=== PATIENT | female | born 1960 | race American Indian/Alaskan Native ===

== ENCOUNTER 2016-08-02 13:04 | Outpatient (CLI) | payer OTHER ==
--- NOTE | 2016-08-02 13:53 | Mammography Report ---
Screening mammogram: Routine views are obtained and compared to prior examinations dating back to 2011. In the right MLO view superiorly there is a small asymmetry is somewhat more prominent than seen on all of her prior exams. This is not identified in the CC projection. Slightly above and posterior to the right nipple is stellate deformity seen only in the MLO projection. This is slightly more prominent than seen on prior exams. The remainder of the breast pattern is heterogeneous and symmetrically distributed with no other focal findings. With the exception of the above-mentioned findings in the right breast the breast pattern bilaterally is unchanged from prior studies. CAD used. Impression: Right breast asymmetries. Recommendation: Additional compression imaging of the right breast and ultrasound as needed. BI-RADS CATEGORY: 0 = Needs additional imaging evaluation ACR BI-RADS MAMMOGRAPHIC CODES: 0 = Needs additional imaging evaluation; 1 = Negative; 2 = Benign; 3 = Probably benign; 4 = Suspicious; 5 = Malignant; 6 = Known biopsy-proven malignancy COMMENT: 1. Dense breast tissue, i.e., adenosis, fibrocystic changes, etc., may obscure an underlying neoplasm. 2. Approximately 10% of cancers are not detected with mammography. 3. A negative mammography report should not delay biopsy if a clinically suspicious mass is present.
== END 2016-08-02 13:05 | disposition home or self-care (01) ==
LOC: SPVWC 13:04
DX: Z12.31 Encounter for screening mammogram for malignant neoplasm of breast (principal)
CPT/HCPCS: 77067; G0202

== ENCOUNTER 2016-08-23 14:29 | Outpatient (CLI) | payer OTHER ==
--- NOTE | 2016-08-23 16:07 | Mammography Report ---
Right mammogram and right breast ultrasound: Additional compression imaging of the breasts confirms the presence of an area of mild asymmetry in the superior breast but is not visualized in the additional CC images. Review of prior studies demonstrates a slightly larger than seen in 2015. The margins are ill-defined. No calcifications and no architectural distortion noted. It measures approximately 9.2 mm. The area of concern in the retroareolar region shows no significant abnormality in the additional images. Ultrasound imaging in the tail of the breast shows no abnormality. There is a 13 mm benign appearing lymph node in the right axilla. In the 8:30 position approximately 5 cm from the nipple there is an elongated and well circumscribed and homogeneously hypoechoic nodule measuring 7.3 mm. No internal flow with color imaging. No mammographic correlation identified. Impressions: 1. The asymmetry in the superior breast is probably benign but has slightly enlarged in the past 2 years. No ultrasound correlation. 2. Indeterminate solid appearing nodule at 8:30. Recommendations: 1. Ultrasound guided biopsy of solid lesion. 2. Six-month mammogram followup of right upper breast asymmetry. The findings and recommendations have been discussed with the patient. She has been notified to call you for scheduling. BI-RADS CATEGORY: 4 = Suspicious ACR BI-RADS MAMMOGRAPHIC CODES: 0 = Needs additional imaging evaluation; 1 = Negative; 2 = Benign; 3 = Probably benign; 4 = Suspicious; 5 = Malignant; 6 = Known biopsy-proven malignancy COMMENT: 1. Dense breast tissue, i.e., adenosis, fibrocystic changes, etc., may obscure an underlying neoplasm. 2. Approximately 10% of cancers are not detected with mammography. 3. A negative mammography report should not delay biopsy if a clinically suspicious mass is present.
== END 2016-08-23 14:30 | disposition home or self-care (01) ==
LOC: SPVWC 14:29
DX: N63 Unspecified lump in breast (principal)
CPT/HCPCS: 76642; G0206

== ENCOUNTER 2016-08-31 13:05 | Outpatient (CLI) | payer OTHER ==
--- NOTE | 2016-08-31 14:41 | Mammography Report ---
Right DIGITAL DIAGNOSTIC MAMMOGRAM: 08/31/16 13:05:00 CLINICAL: For clip placement immediately status post ultrasound biopsy. COMPARISON:08/23/16 FINDINGS: A biopsy clip is now identified in the lower outer quadrant. IMPRESSION: Concordant clip placement status post ultrasound biopsy. BI-RADS CATEGORY: 4--Suspicious Pathology pending.
--- NOTE | 2016-08-31 14:43 | Ultrasound Report ---
ULTRASOUND GUIDED NEEDLE CORE BIOPSY RIGHT BREAST WITH CLIP PLACEMENT: 08/31/16 CLINICAL: Right breast mass at 8:30 o'clock 5 cm from the nipple. COMPARISON :08/23/16 FINDINGS: The procedure was explained to the patient and informed consent was obtained. Ultrasound demonstrated the previously described mass at 8:30 o'clock.. I marked the breast with a felt tip marker and a time out was called. The skin was prepped with Betadine and anesthetized with 1% lidocaine. Needle core biopsy was performed through a tiny dermatotomy using ultrasound guidance, 2% lidocaine with epinephrine for deep anesthesia and a 14-gauge Achieve biopsy device. Imaging demonstrated satisfactory sampling. 3 cores were obtained and placed in formalin. A clip was deployed within the mass. The patient tolerated the procedure well and there were no apparent complications. Hemostasis was achieved with gentle pressure and a sterile dressing was applied. A two view mammogram demonstrated satisfactory placement of the clip. She left the department in good condition and was given instructions for wound care and followup. IMPRESSION: Uncomplicated ultrasound guided needle core biopsy with clip placement right breast.
== END 2016-08-31 13:06 | disposition home or self-care (01) ==
LOC: SPVWC 13:05
DX: N63 Unspecified lump in breast (principal)
CPT/HCPCS: 19083; 88305; A4648; G0206

== ENCOUNTER 2017-04-14 14:32 | Emergency (ER) | payer OTHER ==
[2017-04-14] MEDS ORDERED: PHENERGAN PO ONE (15:47)
[2017-04-14] MEDS ORDERED: NORCO 5/325 PO ONE (15:47)
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
--- NOTE | 2017-04-14 16:42 | Cat Scan Report ---
FINAL REPORT EXAM: CT HEAD/BRAIN WO CON HISTORY: head injury TECHNIQUE: Standard unenhanced CT of the head at 5.0 millimeter axial increments. PRIORS: None. FINDINGS: In the left frontal lobe, there is a 1.5 x 1.8 cm rounded mildly hyperdense focus with surrounding low-density edema. This most likely represents a mass, however, due to the density measurements, a subacute area of parenchymal hemorrhage is not entirely excluded. MRI is warranted. The ventricular system is normal in size and configuration. There is no evidence for parenchymal volume loss. There is no evidence for mass effect, midline shift, or acute ischemia/ infarction. No evidence for acute skull fracture is seen. No abnormality in the overlying scalp soft tissues is seen. Visualized paranasal sinuses are clear. IMPRESSION: Rounded mildly hyperdense focus in the left frontal region with surrounding low-density edema. Findings are most concerning for possible mass with surrounding vasogenic edema. However, a subacute area hemorrhage is included in the differential. MRI is warranted.
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
[2017-04-14] MEDS ORDERED: ZOFRAN IV ONE (17:37)
[2017-04-14] MEDS ORDERED: DILAUDID IV ONE (17:37)
[2017-04-14 18:36] VITALS: BP 138/64
== END 2017-04-14 18:40 | disposition other institution (70) ==
LOC: ED 14:32
DX: S06.300A Unspecified focal traumatic brain injury without loss of consciousness, initial encounter (principal); W22.8XXA Striking against or struck by other objects, initial encounter; Y93.89 Activity, other specified; Y99.0 Civilian activity done for income or pay; Y92.69 Other specified industrial and construction area as the place of occurrence of the external cause
CPT/HCPCS: 70450; 72125; 99285; Q0169

== ENCOUNTER 2017-09-05 12:19 | Outpatient (CLI) | payer OTHER ==
--- NOTE | 2017-09-06 15:11 | Mammography Report ---
BILATERAL DIGITAL SCREENING MAMMOGRAM with CAD: 09/05/17 12:19:00 CLINICAL: Routine screening. COMPARISON:08/02/16 FINDINGS: The breasts are heterogeneously dense, which may obscure small masses. Left asymmetries on the MLO view require additional imaging.There is mild architectural distortion no suspicious calcifications. The right breast is negative. IMPRESSION: Left asymmetries in architectural distortion requiring further workup. BI-RADS CATEGORY: 0 -- Additional Imaging Evaluation Required RECOMMENDATION: Recall for left exaggerated CC, ML and , spot compression views and left breast ultrasound if needed. ACR BI-RADS MAMMOGRAPHIC CODES: 0 = Needs additional imaging evaluation; 1 = Negative; 2 = Benign; 3 = Probably benign; 4 = Suspicious; 5 = Malignant; 6 = Known biopsy-proven malignancy COMMENT: 1. Dense breast tissue, i.e., adenosis, fibrocystic changes, etc., may obscure an underlying neoplasm. 2. Approximately 10% of cancers are not detected with mammography. 3. A negative mammography report should not delay biopsy if a clinically suspicious mass is present. COMMENT: Patient follow-up letters are generated via our [employer] application.
== END 2017-09-05 12:20 | disposition home or self-care (01) ==
LOC: SPVWC 12:19
DX: Z12.31 Encounter for screening mammogram for malignant neoplasm of breast (principal)
CPT/HCPCS: 77067

== ENCOUNTER 2018-09-11 08:18 | Outpatient (CLI) | payer OTHER ==
--- NOTE | 2018-09-11 14:03 | Mammography Report ---
BILATERAL DIGITAL SCREENING MAMMOGRAM with CAD : 09/11/18 08:18:00 CLINICAL: Routine screening. COMPARISON:09/05/17 FINDINGS: The breasts are heterogeneously dense, which may obscure small masses.A right outer biopsy clip. No mass, architectural distortion or suspicious calcifications. IMPRESSION: No mammographic evidence of malignancy. BI-RADS CATEGORY: 2 -- Benign RECOMMENDATION: Routine mammographic screening in one year. COMMENT: Patient follow-up letters are generated by our [employer] application.
== END 2018-09-11 08:19 | disposition home or self-care (01) ==
LOC: SPVWC 08:18
DX: Z12.31 Encounter for screening mammogram for malignant neoplasm of breast (principal)
CPT/HCPCS: 77067

== ENCOUNTER 2019-09-13 08:00 | Outpatient (CLI) | payer OTHER | END 2019-09-13 08:01 | disposition home or self-care (01) | LOC: SPVWC 08:00 | PROVIDERS: ATTEND Urology | DX: Z12.31 Encounter for screening mammogram for malignant neoplasm of breast (principal) | CPT/HCPCS: 77067 ==

== ENCOUNTER 2020-09-16 09:05 | Outpatient (CLI) | payer OTHER ==
--- NOTE | 2020-09-16 12:16 | Mammography Report ---
BILATERAL DIGITAL SCREENING MAMMOGRAM WITH CAD HISTORY: Screening mammogram. TECHNIQUE: Routine digital mammographic imaging performed. This examination was interpreted with sandeep aquino benefit of Computer-aided Detection analysis. COMPARISON: 09/13/2019, 09/11/2018, 09/05/2017. FINDINGS: Breast Density: heterogeneously dense breast parenchymal pattern which somewhat lessens the sensitivi ty of the evaluation. Digital CC and MLO views demonstrate no mammographic evidence of malignancy. Biopsy marker in the ri ght lateral breast is again noted. IMPRESSION: No mammographic evidence of malignancy. If the clinical examination remains stable, recommend bilate ral mammogram in approximately one year. BIRADS 2: Benign Finding(s). FURTHER INFORMATION: According to the [employer], yearly mammograms are recommend ed starting at age 40 and continuing as long as a woman is in good health. Clinical Breast Exams shou ld be part of a periodic health exam-about every 3 years for women in their 20s and 30s and every yea r for women 40 and over. Breast self exam is an option for women starting in their 20s. Any breast ch braden noted on a breast self exam should be reported promptly to the patient's healthcare provider. Br east MRI is recommended for women with an approximately 20-25% or greater lifetime risk of breast can cer, including women with a strong family history of breast or ovarian cancer and women who have been treated for Hodgkin's disease. A negative Mammography report should not discourage follow up or biopsy of a clinically significant f inding and/or abnormality. Dense breast tissue may obscure small neoplasms. The patient will be entered into a reminder system with a target due date for the next screening mamm ogram. Signer Name: Aleksandar Chiang MD Signed: 09/16/2020 12:11 PM Workstation Name: [id number]
== END 2020-09-16 09:06 | disposition home or self-care (01) ==
LOC: SPVWC 09:05
PROVIDERS: ATTEND Urology
DX: Z12.31 Encounter for screening mammogram for malignant neoplasm of breast (principal); N64.89 Other specified disorders of breast
CPT/HCPCS: 77067

== ENCOUNTER 2021-09-22 10:17 | Outpatient (CLI) | payer MEDICARE, OTHER ==
--- NOTE | 2021-09-23 17:12 | Mammography Report ---
DIGITAL SCREENING MAMMOGRAM WITH CAD, 09/22/2021 CLINICAL INFORMATION / INDICATION: Routine screening mammography. SCREENING MAMMO Z12.31 TECHNIQUE: Digital bilateral 2D mammography was obtained in the craniocaudal and mediolateral obliqu e projections. This examination was interpreted with the benefit of Computer-Aided Detection analysis . COMPARISON: 09/16/2020 FINDINGS: Breast Density: The breasts are heterogeneously dense, which may obscure small masses. No dominant mass, suspicious calcifications, or architectural distortion in either breast. Biopsy clip again noted in the right breast. Largely unchanged nodular densities in the breasts, comm only fibroglandular or fibrocystic change. IMPRESSION: No mammographic evidence of malignancy. Follow up recommendation: Routine yearly screening mammogram. BI-RADS Category 2: BENIGN. A "normal" or negative report should not discourage follow up or biopsy of a clinically significant f inding. A written summary of these findings will be mailed to the patient. The patient will be entered into a mammography reporting system which will generate a reminder letter for the patient's next appointmen t at the appropriate interval. The [employer] recommends yearly mammograms starting at age 40 and continuing as l caprice as a woman is in good health. Breast MRI is recommended for women with an approximate 20-25% or greater lifetime risk of breast cancer, including women with a strong family history of breast or ova donald cancer or who have been treated for Hodgkin's disease. Signer Name: Dakota Jimenez MD Signed: 09/23/2021 5:08 PM Workstation Name: [id number]
== END 2021-09-22 10:18 | disposition home or self-care (01) ==
LOC: SPVWC 10:17
PROVIDERS: ATTEND Family Medicine
DX: Z12.31 Encounter for screening mammogram for malignant neoplasm of breast (principal)
CPT/HCPCS: 77067